=== PATIENT | female | born 1970 | race Caucasian/White ===

== ENCOUNTER 2023-09-25 11:10 | Emergency (ER) | payer BC ==
[~2023-09-25] VITALS: Ht 177.8 cm; Wt 68.2 kg
[2023-09-25 11:22] VITALS: TEMP 98.3
[2023-09-25] MEDS ORDERED: MOTRIN 800800 MG/TAB PO (13:50)
[2023-09-25] MEDS ORDERED: NORCO 325 MG-51 TAB PO (13:50)
[2023-09-25 13:57] VITALS: BP 144/97; PULSE 82
== END 2023-09-25 14:00 | disposition home or self-care (01) ==
LOC: COL.ER 11:10
DX: M25.552 Pain in left hip (principal); M79.652 Pain in left thigh